=== PATIENT | male | born 1960 | race Caucasian/White ===

== ENCOUNTER 2018-07-22 18:09 | Emergency (ER) | payer BC, MEDICARE ==
--- NOTE | 2018-07-22 20:59 | EDM.PDOC ---
ED HPI GENERAL MEDICAL PROBLEM - General Chief Complaint: General Stated Complaint: SALAZAR CATHETER CAME OUT Time Seen by Provider: 07/22/18 18:35 Source of Information: Reports: Patient History Limitations: Reports: No Limitations - History of Present Illness INITIAL COMMENTS - FREE TEXT/NARRATIVE: pt had a salazar cath that came out. He is getting meds for pulmonary hypertension and he needs to have a line continuously. He has had a problem with the hickmans coming out. This has been the 4th or 5th that he has had spontaneously come out. Onset: Today, Sudden Duration: Hour(s): Location: Reports: Chest Associated Symptoms: Reports: No Other Symptoms, Other ( The salazar site looks good. ) - Related Data Allergies Allergy/AdvReac Type Severity Reaction Status Date / Time Unable to Assess Allergy Unverified 07/22/18 18:52 Home Meds: Home Meds Albuterol [Ventolin HFA] 1 puff IH ASDIRECTED PRN 07/22/18 [History] Digoxin 200 mcg PO DAILY 07/22/18 [History] Fluticasone/Vilanterol [Breo Ellipta 100-25 MCG Inhalation Kit] 1 puff IH DAILY 07/22/18 [History] Folic Acid 1 tab PO DAILY 07/22/18 [History] Furosemide [Lasix] 20 mg PO ASDIRECTED 07/22/18 [History] Methotrexate 5 tab PO ASDIRECTED 07/22/18 [History] Nintedanib Esylate [Ofev] 150 mg PO BID 07/22/18 [History] Potassium 200 mg PO ASDIRECTED 07/22/18 [History] Tiotropium [Spiriva HandiHaler] 1 dose IH DAILY 07/22/18 [History] Tofacitinib Citrate [Xeljanz] 5 mg PO BID 07/22/18 [History] Treprostinil Sodium [Remodulin] 40 mg IV ASDIRECTED 07/22/18 [History] prednisoLONE [Millipred] 5 mg PO DAILY 07/22/18 [History] Past Medical History Cardiovascular History: Reports: Hypertension, Pulmonary Hypertension, Other ( See Below) Other Cardiovascular History: right side of heart enlarged Respiratory History: Reports: Sleep Apnea, SOB Gastrointestinal History: Reports: None, Other (See Below) Musculoskeletal History: Reports: RA, Other (See Below) Endocrine/Metabolic History: Reports: Obesity/BMI 30+ Immunologic History: Reports: Other (See Below) Other Immunologic History: RA - Infectious Disease History Infectious Disease History: Reports: Chicken Pox, Measles, Mumps, Shingles - Past Surgical History Head Surgeries/Procedures: Reports: None Cardiovascular Surgical History: Reports: Other (See Below) Other Cardiovascular Surgeries/Procedures: heart cath Respiratory Surgical History: Reports: None GI Surgical History: Reports: None Dermatological Surgical History: Reports: None Social & Family History - Tobacco Use Smoking Status *Q: Never Smoker Second Hand Smoke Exposure: No - Caffeine Use Caffeine Use: Reports: Coffee - Recreational Drug Use Recreational Drug Use: No ED ROS GENERAL - Review of Systems Review Of Systems: See Below Constitutional: Reports: No Symptoms HEENT: Reports: No Symptoms Respiratory: Reports: No Symptoms Cardiovascular: Reports: No Symptoms Endocrine: Reports: No Symptoms GI/Abdominal: Reports: No Symptoms : Reports: No Symptoms Musculoskeletal: Reports: No Symptoms Skin: Reports: No Symptoms ED EXAM, GENERAL - Physical Exam Exam: See Below Free Text/Narrative:: pt has a history of pulmonary hypertension. He uses iv medication for this. He had a salazar cath which came out today and he is not able to get his meds. Exam Limited By: No Limitations General Appearance: Alert, Anxious Ears: Normal TMs Respiratory/Chest: Other ( The site for the salazar looks good. ) Cardiovascular: Regular Rate, Rhythm Course - Vital Signs Last Recorded V/S: Last Vital Signs Temp 36.3 C 07/22/18 19:00 Pulse 113 H 07/22/18 19:00 Resp 26 H 07/22/18 19:00 BP 144/90 H 07/22/18 19:00 Pulse Ox 86 L 07/22/18 19:00 - Orders/Labs/Meds Orders: Active Orders 24 hr Category Date Time Status PICC Line [Central Line Insert Checklist] [RC] Care 07/22/18 19:23 Active ASDIRECTED - Re-Assessments/Exams Free Text/Narrative Re-Assessment/Exam: 07/22/18 21:07 A pic line was inserted in the left antecubital area. He will use this until he sees his Dr [facility] regarding another H[facility]. Departure - Departure Time of Disposition: 21:28 Disposition: Home, Self-Care 01 Condition: Fair Clinical Impression: PIC line (peripherally inserted central catheter) flush - Discharge Information Referrals: PCP,None [Primary Care Provider] - Forms: ED Department Discharge Care Plan Goals: pt will use the pic line to give his meds, Contact regular Dr when he gets home. To Outpt tomorrow to have the dressing chjanged and the pic line checked. - My Orders Last 24 Hours: My Active Orders 07/22/18 19:23 PICC Line [Central Line Insert Checklist] [RC] ASDIRECTED - Assessment/Plan Last 24 Hours: My Active Orders 07/22/18 19:23 PICC Line [Central Line Insert Checklist] [RC] ASDIRECTED
== END 2018-07-22 21:36 | disposition home or self-care (01) ==
LOC: JP.ED 18:09
DX: Z45.2 Encounter for adjustment and management of vascular access device (principal); I10 Essential (primary) hypertension; M06.9 Rheumatoid arthritis, unspecified; E66.9 Obesity, unspecified; Z79.899 Other long term (current) drug therapy
CPT/HCPCS: 36569; 99283; C1751